=== PATIENT | female | born 1945 | race African-American/Black ===

== ENCOUNTER → 2020-06-11 13:24 | Outpatient (BNVA) | payer MEDICARE, MEDICAID, SELFPAY | PROVIDERS: PCP Physician Assistant; Referring Provider Physician Assistant; Visit Provider Dietitian, Registered | DX: Z76.89 Persons encountering health services in other specified circumstances (principal) ==

== ENCOUNTER → 2020-07-15 12:32 | Outpatient (BNVA) | payer MEDICARE, MEDICAID, SELFPAY | PROVIDERS: PCP Physician Assistant; Visit Provider Nurse Practitioner Gerontology | DX: E11.65 Type 2 diabetes mellitus with hyperglycemia (principal); E11.42 Type 2 diabetes mellitus with diabetic polyneuropathy; I10 Essential (primary) hypertension; E78.5 Hyperlipidemia, unspecified; E66.9 Obesity, unspecified; Z79.4 Long term (current) use of insulin | CPT/HCPCS: 82947; 99212 ==

== ENCOUNTER → 2020-07-30 10:26 | Outpatient (BNVA) | payer MEDICARE, MEDICAID, SELFPAY | PROVIDERS: PCP Physician Assistant; Referring Provider Physician Assistant; Visit Provider Nurse Practitioner Gerontology | DX: E11.65 Type 2 diabetes mellitus with hyperglycemia (principal); E11.42 Type 2 diabetes mellitus with diabetic polyneuropathy; Z79.4 Long term (current) use of insulin; I10 Essential (primary) hypertension; E78.5 Hyperlipidemia, unspecified; E66.9 Obesity, unspecified; Z68.34 Body mass index [BMI] 34.0-34.9, adult | CPT/HCPCS: 82947; 99212 ==

== ENCOUNTER → 2020-11-04 13:36 | Outpatient (BNVA) | payer MEDICARE, MEDICAID, SELFPAY | PROVIDERS: PCP Physician Assistant; Visit Provider Nurse Practitioner Gerontology | DX: Z13.89 Encounter for screening for other disorder (principal) | CPT/HCPCS: Q3014 ==

== ENCOUNTER 2020-11-15 08:07 | Outpatient (REF) | payer MEDICARE, MEDICAID, SELFPAY ==
[2020-11-15 09:50] LABS: Estimated Average Glucose 169 mg/dL; Hemoglobin A1c % 7.5 %
[2020-11-15 10:10] LABS: Cholesterol 164 mg/dL; HDL Cholesterol 41 mg/dL; LDL Cholesterol Calculated 88 mg/dl; Triglycerides 175 mg/dL
== END 2020-11-15 08:08 | disposition home or self-care (01) ==
LOC: HO.LAB 08:07
PROVIDERS: Visit Provider Nurse Practitioner Gerontology
DX: E11.42 Type 2 diabetes mellitus with diabetic polyneuropathy (principal); Z79.4 Long term (current) use of insulin
CPT/HCPCS: 36415; 80061; 83036

== ENCOUNTER → 2020-11-27 11:59 | Outpatient (BNVA) | payer MEDICARE, MEDICAID, SELFPAY | PROVIDERS: PCP Physician Assistant; Visit Provider Nurse Practitioner Gerontology | DX: Z13.89 Encounter for screening for other disorder (principal) | CPT/HCPCS: Q3014 ==

== ENCOUNTER 2021-05-13 02:02 | Emergency (ER) | payer MEDICARE, MEDICAID, SELFPAY ==
[2021-05-13 02:20] VITALS: BP 176/74; PULSE 72; RESP 18; TEMP 36.4; O2SAT 96; BMI 34.6
--- NOTE | 2021-05-13 03:08 | ED_ITS ---
HPI - Back Pain/Injury General Chief Complaint: Back Pain/Injury Stated Complaint: back pain Time Seen by Provider: 05/13/21 02:59 Source: patient Mode of arrival: ambulatory Limitations: no limitations History of Present Illness HPI Narrative: Patient comes to the emergency room complaining of right upper back pain. Patient states that she has history of chronic pain, her back has been hurting for 2 months, but today could not get comfortable to sleep. Patient states she takes tramadol, gabapentin, but nothing works. Patient denies chest pain, no shortness of breath. Patient states the pain is worse if she puts pressure on the right side of the back or if she moves the right arm, patient states that it feels that her muscles cramp up Related Data Home Medications Medication Instructions Recorded Confirmed aspirin 81 mg tablet,delayed 81 mg PO DAILY 07/15/20 11/27/20 release blood sugar diagnostic #10 ea 07/15/20 11/27/20 blood-glucose meter #1 ea 07/15/20 11/27/20 famotidine 40 mg tablet 40 mg PO BEDTIME 07/15/20 11/27/20 fexofenadine 180 mg tablet 180 mg PO DAILY 07/15/20 11/27/20 lancets 33 gauge #100 ea 07/15/20 11/27/20 loratadine 10 mg tablet 10 mg PO DAILY 07/15/20 11/27/20 metoprolol succinate 50 mg 50 mg PO DAILY 07/15/20 11/27/20 tablet,extended release 24 hr pantoprazole 40 mg tablet,delayed 40 mg PO DAILY 07/15/20 11/27/20 release pen needle, diabetic 31 gauge x #50 ea 07/15/20 11/27/2011/19 tramadol 50 mg tablet 50 mg PO BID 07/15/20 11/27/20 valsartan 160 mg tablet 160 mg PO BEDTIME 07/15/20 11/27/20 ticagrelor 90 mg tablet 90 mg PO BID 11/04/20 11/27/20 acetaminophen 500 mg capsule mg PO 11/27/20 11/27/20 cetirizine 10 mg tablet 10 mg PO DAILY 11/27/20 11/27/20 fluticasone propionate 50 spray INTRANASAL 11/27/20 11/27/20 mcg/actuation nasal spray,suspension insulin glargine 100 unit/mL (3 38 unit SUBCUT QPM ml 11/27/20 11/27/20 mL) subcutaneous pen (Lantus Solostar U-100 Insulin) insulin lispro 100 unit/mL See Rx Instructions SUBCUT TID ml 11/27/20 11/27/20 subcutaneous pen latanoprost 0.005 % eye drops 1 drp OPHTHALMIC (EYE) BEDTIME 11/27/20 11/27/20 Previous Rx's Medication Instructions Recorded rosuvastatin 40 mg tablet 40 mg PO DAILY #90 tab 08/26/20 dulaglutide 1.5 mg/0.5 mL 1.5 mg SUBCUT QWEEK 28 Days #2 ml 11/27/20 subcutaneous pen injector (Trulicity) ezetimibe 10 mg tablet 10 mg PO DAILY #30 tab 11/27/20 gabapentin 300 mg capsule See Rx Instructions PO BEDTIME #90 11/27/20 cap diazepam 2 mg tablet (Valium) 2 mg PO BEDTIME PRN #3 tab 05/13/21 Allergies Allergy/AdvReac Type Severity Reaction Status Date / Time nifedipine Allergy Unknown Swelling Verified 11/27/20 12:00 Review of Systems Review of Systems: Constitutional : No Weight loss, No Fever, No Chills, No Night Sweats, No Fatigue, No Malaise ENT/Mouth : No Hearing loss, No Ear Pain, No Nasal Congestion, No Sinus Pain, No Hoarseness, No sore throat, No Rhinorrhea, No Swallowing Difficulty Eyes: No Eye Pain, No Swelling, No Redness, No Foreign Body, No Discharge, No Vision Changes Cardiovascular : No Chest Pain, No SOB, No Dyspnea on Exertion, No Orthopnea, No Edema, No Palpitations Respiratory : No Cough, No Sputum, No Wheezing, No Smoke Exposure, No Dyspnea Gastrointestinal : No Nausea, No Vomiting, No Diarrhea, No Constipation, No abdominal Pain, No Hematochezia, No Melena Genitourinary : no irregular bleeding, No Dysuria, No Urinary Frequency, No Hematuria, No Urinary Incontinence, No Urgency, No Flank Pain, No Urinary Flow Changes, No Hesitancy Musculoskeletal : Complaining of back pain, around the scapula, right side, No joint pain, No Myalgias, No Joint Swelling Skin : No Skin Lesions, No rash Neuro : No Weakness, No Numbness, No Paresthesias, No Loss of Consciousness, No Dizziness, No Headache Psych : No Anxiety/Panic, No Depression, No SI/HI/AH/VH, No Social Issues, Heme/Lymph: No Bruising, No Bleeding,No Lymphadenopathy Endocrine : No Polyuria, No Polydipsia, No Temperature Intolerance [facility] Past Medical History Medical History Chronic cough Dyspepsia Essential hypertension Fatty liver Hyperlipidemia LDL goal <70 NSTEMI (non-ST elevated myocardial infarction) Pacemaker Type 2 diabetes mellitus with diabetic polyneuropathy, with long-term current use of insulin Type 2 diabetes mellitus with hyperglycemia, with long-term current use of insulin Surgical History Hx of cardiac cath Family History Family History Father No problems noted. Mother Diabetes mellitus CVD (cardiovascular disease) Social History Social History (Updated 11/04/20 @ 13:37 by Salina Doyle [facility]) Household Members: Spouse Advance Directives: No Advance Directives Information Provided: No Physical Exam Vital Signs: Vital Signs: Last Vital Signs Temp 97.5 F 05/13/21 02:20 Pulse 72 05/13/21 02:20 Resp 18 05/13/21 02:20 BP 176/74 H 05/13/21 02:20 Pulse Ox 96 05/13/21 02:20 Body Mass Index 34.6 Const: Other: Appearance: Alert. Oriented X3. No acute distress. Eyes: Pupils equal, round and reactive to light. ENT: Pharynx normal. Neck: Normal inspection. Neck supple. No lymph nodes noted. No crepitus CVS: Normal heart rate and rhythm. Pulses normal. Normal S1 and S2 Respiratory: No respiratory distress. Breath sounds normal. No Wheezing. No rales Abdomen: Soft and nontender. No rigidity. No distention Back: Pain to palpation over the suprascapular and the scapula Skin: Skin warm and dry. Normal skin color. Normal skin turgor. Extremities: No lower extremity edema. No lower extremity edema. No Lacerations. No Rash Neuro: Oriented X 3. No motor deficit. No sensory deficit. Moving all extermities. No slurred speech. Course Course Course Narrative: Patient's back pain likely musculoskeletal Discharge Plan Discharge Clinical Impression: Back pain Qualifiers: Back pain location: back pain in other location Chronicity: chronic Qualified Code(s): M54.9 - Dorsalgia, unspecified Patient Disposition: Home, Self-Care Instructions: Back Pain (ED) Additional Instructions: Please follow-up with your primary care physician tomorrow. If you have any worsening or new symptoms, please return to the emergency room or call 911 Prescriptions: New diazepam [Valium] 2 mg tablet 2 mg PO BEDTIME PRN (Reason: muscle spasm) Qty: 3 RF: 0 No Action rosuvastatin 40 mg tablet 40 mg PO DAILY Qty: 90 RF: 1 Trulicity 1.5 mg/0.5 mL pen injector 1.5 mg subcut QWEEK 28 Days Qty: 2 RF: 3 (DME) OneTouch Ultra Blue Test Strip Strip See Rx Instructions strip .ROUTE .MEDSUPPLY Qty: 10 RF: 0 metoprolol succinate 50 mg tablet extended release 24 hr 50 mg PO DAILY RF: 0 valsartan 160 mg tablet 160 mg PO BEDTIME RF: 0 (DME) pen needle, diabetic 31 gauge x 3/16 needle See Rx Instructions ea .ROUTE QID Qty: 50 RF: 0 (DME) lancets 33 gauge misc See Rx Instructions ea .ROUTE QID Qty: 100 RF: 0 famotidine 40 mg tablet 40 mg PO BEDTIME RF: 0 tramadol 50 mg tablet 50 mg PO BID RF: 0 fexofenadine 180 mg tablet 180 mg PO DAILY RF: 0 aspirin 81 mg tablet,delayed release (DR/EC) 81 mg PO DAILY RF: 0 pantoprazole 40 mg tablet,delayed release (DR/EC) 40 mg PO DAILY RF: 0 loratadine 10 mg tablet 10 mg PO DAILY RF: 0 (DME) blood-glucose meter Misc See Rx Instructions ea .ROUTE DAILY Qty: 1 RF: 0 ticagrelor 90 mg tablet 90 mg PO BID RF: 0 acetaminophen 500 mg capsule PO RF: 0 fluticasone propionate 50 mcg/actuation spray,suspension intranasal RF: 0 cetirizine 10 mg tablet 10 mg PO DAILY RF: 0 latanoprost 0.005 % drops 1 drp ophthalmic (eye) BEDTIME RF: 0 Lantus Solostar U-100 Insulin 100 unit/mL (3 mL) insulin pen 38 unit subcut QPM RF: 0 insulin lispro 100 unit/mL insulin pen See Rx Instructions subcut TID RF: 0 gabapentin 300 mg capsule See Rx Instructions PO BEDTIME Qty: 90 RF: 3 ezetimibe 10 mg tablet 10 mg PO DAILY Qty: 30 RF: 3
[2021-05-13] MEDS: diazePAM 2 MG TABLET PO (03:55)
[2021-05-13 04:10] VITALS: RESP 18
[2021-05-13] MEDS: HYDROmorphone HCl 0.5 MG/0.5 ML SYRINGE IM (04:10)
[2021-05-13 05:04] VITALS: BP 165/75; PULSE 87; RESP 18; O2SAT 96
== END 2021-05-13 05:12 | disposition home or self-care (01) ==
PROVIDERS: Emergency Provider Emergency Medicine
DX: G89.29 Other chronic pain (principal); M54.9 Dorsalgia, unspecified; E11.9 Type 2 diabetes mellitus without complications; I10 Essential (primary) hypertension; E78.5 Hyperlipidemia, unspecified; E66.9 Obesity, unspecified; Z79.02 Long term (current) use of antithrombotics/antiplatelets; Z79.4 Long term (current) use of insulin; Z79.899 Other long term (current) drug therapy; Z79.82 Long term (current) use of aspirin
CPT/HCPCS: 96372; 99283; 99284; J1170

== ENCOUNTER → 2021-05-14 13:59 | Outpatient (BNVA) | payer MEDICARE, MEDICAID, SELFPAY | PROVIDERS: PCP Physician Assistant; Visit Provider Nurse Practitioner Gerontology | DX: E11.42 Type 2 diabetes mellitus with diabetic polyneuropathy (principal); E11.65 Type 2 diabetes mellitus with hyperglycemia; I10 Essential (primary) hypertension; E78.5 Hyperlipidemia, unspecified; E66.9 Obesity, unspecified; Z79.4 Long term (current) use of insulin | CPT/HCPCS: 82947; 83036; 99212 ==

== ENCOUNTER 2021-05-20 09:24 | Outpatient (REF) | payer OTHER, SELFPAY ==
[2021-05-20 10:23] LABS: Alanine Aminotransferase 10 U/L (0-31); Alkaline Phosphatase 85 U/L (39-117); Anion Gap 9 (12-20); Aspartate Amino Transferase 16 U/L (5-31); Bilirubin Total 0.5 mg/dL (0.0-1.0); Blood Urea Nitrogen 13 mg/dL (9-16); Calcium 9.5 mg/dL (8.4-10.2); Carbon Dioxide 29 mmol/L (22-29); Chloride 107 mmol/L (96-108); Cholesterol 245 mg/dL; Estimated Glomerular Filt Rate 60; Glucose Fasting 123 mg/dL (60-99); HDL Cholesterol 38 mg/dL; LDL Cholesterol Calculated 165 mg/dl; Potassium 4.3 mmol/L (3.3-5.1); Sodium 141 mmol/L (135-145); Total Protein 6.4 g/dL (6.5-8.0); Triglycerides 214 mg/dL
== END 2021-05-20 09:25 | disposition home or self-care (01) ==
LOC: HO.LAB 09:24
PROVIDERS: PCP Physician Assistant; Visit Provider Nurse Practitioner Gerontology
DX: E11.42 Type 2 diabetes mellitus with diabetic polyneuropathy (principal); Z79.4 Long term (current) use of insulin
CPT/HCPCS: 36415; 80053; 80061

== ENCOUNTER → 2021-05-29 09:05 | Outpatient (BNVA) | payer OTHER, SELFPAY | PROVIDERS: PCP Physician Assistant; Visit Provider Nurse Practitioner Gerontology | DX: E11.42 Type 2 diabetes mellitus with diabetic polyneuropathy (principal); E11.65 Type 2 diabetes mellitus with hyperglycemia; E78.5 Hyperlipidemia, unspecified; E66.9 Obesity, unspecified; I10 Essential (primary) hypertension; Z79.4 Long term (current) use of insulin | CPT/HCPCS: Q3014 ==